=== PATIENT | female | born 1990 | race Caucasian/White ===

== ENCOUNTER 2016-10-25 23:31 | Emergency (ER) | payer OTHER ==
[~2016-10-25 23:31] MED LIST: CEPH500C PO; CYCL10TA2 PO; FLUC150T PO; PNV1TABL12 PO; SULF1TAB24 PO
[2016-10-26 00:05] VITALS: BP 111/63
[2016-10-26] MEDS ORDERED: IBUPROFEN 800 MG TABLET. PO ONE ×2 (00:38→00:45)
[2016-10-26] MEDS ORDERED: PRED20TA PO (00:42)
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
--- NOTE | 2016-10-26 07:21 | RAD ---
Right foot, 3 views, 10/26/2016: History: Fall, pain Comparison is made to a study from 11/28/2011. There are multiple surgical pins traversing the first, second and third tarsal-metatarsal joints. There is a horizontally oriented screw extending through the first through third cuneiform bones. There is a metallic plate with screws related to the proximal first metatarsal. The findings are presumably due to previous trauma with interval surgical fusion of these joints. No superimposed acute fracture or dislocation is evident. IMPRESSION: 1. Postsurgical changes as described above. 2. No acute bony abnormality is detected.
== END 2016-10-26 00:44 | disposition home or self-care (01) ==
LOC: ER 23:31
DX: M79.671 Pain in right foot (principal); L25.9 Unspecified contact dermatitis, unspecified cause; F41.9 Anxiety disorder, unspecified; M19.90 Unspecified osteoarthritis, unspecified site; F90.9 Attention-deficit hyperactivity disorder, unspecified type; G89.29 Other chronic pain; Z98.890 Other specified postprocedural states; Z88.5 Allergy status to narcotic agent; X58.XXXA Exposure to other specified factors, initial encounter; Y93.89 Activity, other specified; Y92.89 Other specified places as the place of occurrence of the external cause; Y99.8 Other external cause status
CPT/HCPCS: 73630; 99284

== ENCOUNTER 2017-05-18 19:38 | Emergency (ER) | payer OTHER ==
[2017-05-18 20:31] LABS: URINE HCG POC HCG NEGATIVE (Negative)
[2017-05-18 20:37] LABS: ADD MAN DIFF? NO; BASO # 0.1 x10^3/uL (0.0-0.2); BASO % 1 % (0-3); EOS # 0.3 x10^3/uL (0.0-0.7); EOS % 3 % (0-3); HEMOGLOBIN 13.3 g/dL (12.0-15.5); LYMPH # 3.5 x10^3/uL (1.0-4.8); LYMPH % 35 % (24-48); MEAN CORPUSCULAR HEMOGLOBIN 31 pg (25-35); MEAN CORPUSCULAR HGB CONC 34 g/dL (31-37); MEAN CORPUSCULAR VOLUME 91 fL (79-100); MONO # 0.6 x10^3/uL (0.0-1.1); MONO % 6 % (0-9); NEUT # 5.7 x10^3uL (1.8-7.7); NEUT % 56 % (31-73); PLATELET COUNT 320 x10^3/uL (140-400); RED BLOOD COUNT 4.27 x10^6/uL (3.50-5.40); RED CELL DISTRIBUTION WIDTH 14.2 % (11.5-14.5); WHITE BLOOD COUNT 10.3 x10^3/uL (4.0-11.0)
[2017-05-18 20:40] LABS: BILIRUBIN,URINE NEGATIVE (NEG); CLARITY,URINE CLEAR; COLOR,URINE YELLOW; GLUCOSE,URINE NEGATIVE (NEG); NITRITE,URINE NEGATIVE (NEG); PROTEIN,URINE NEGATIVE (NEG-TRACE); UROBILINOGEN,URINE 0.2 mg/dL (0.2 mg/dL)
[2017-05-18 20:52] LABS: BACTERIA,URINE 0 /HPF (0-FEW); RBC,URINE 0 /HPF (0-2); SQUAMOUS EPITHELIAL CELL,UR FEW /LPF; WBC,URINE 0 /HPF (0-4)
[2017-05-18 20:56] LABS: ANION GAP 13 (6-14); BLOOD UREA NITROGEN 8 mg/dL (7-20); BUN/CREATININE RATIO 27 (6-20); CALCIUM 8.9 mg/dL (8.5-10.1); CARBON DIOXIDE 23 mmol/L (21-32); CHLORIDE 106 mmol/L (98-107); CREATININE 0.3 mg/dL (0.6-1.0); GFR 264.9; GLUCOSE 80 mg/dL (70-99); SODIUM 142 mmol/L (136-145)
[2017-05-18 21:02] LABS: ALBUMIN 3.7 g/dL (3.4-5.0); ALBUMIN/GLOBULIN RATIO 1.2 (1.0-1.7); ALK PHOS 76 U/L (46-116); ALT (SGPT) 20 U/L (14-59); AST (SGOT) 29 U/L (15-37); TOTAL BILIRUBIN 0.2 mg/dL (0.2-1.0); TOTAL PROTEIN 6.9 g/dL (6.4-8.2)
== END 2017-05-18 21:26 | disposition home or self-care (01) ==
LOC: ER 19:38
DX: R20.2 Paresthesia of skin (principal); F90.9 Attention-deficit hyperactivity disorder, unspecified type; G89.29 Other chronic pain; F41.9 Anxiety disorder, unspecified; F32.9 Major depressive disorder, single episode, unspecified; Z88.5 Allergy status to narcotic agent
CPT/HCPCS: 36415; 70450; 80053; 81001; 81025; 85025; 93005; 99285-25

== ENCOUNTER 2017-07-15 22:48 | Emergency (ER) | payer SELFPAY, OTHER | END 2017-07-15 23:15 | disposition home or self-care (01) | LOC: ER 22:48 | DX: K04.7 Periapical abscess without sinus (principal); K02.9 Dental caries, unspecified; F41.9 Anxiety disorder, unspecified; F32.9 Major depressive disorder, single episode, unspecified; M19.90 Unspecified osteoarthritis, unspecified site; F90.9 Attention-deficit hyperactivity disorder, unspecified type; G89.29 Other chronic pain; Z98.51 Tubal ligation status; Z88.5 Allergy status to narcotic agent | CPT/HCPCS: 99283 ==

== ENCOUNTER 2018-01-23 05:18 | Emergency (ER) | payer SELFPAY ==
[~2018-01-23] VITALS: Ht 162.6 cm; Wt 54.4 kg
[~2018-01-23 05:18] MED LIST changes: +AMOX875T PO; +DICL50TA2 PO; +PRED20TA PO
--- NOTE | 2018-01-23 05:52 | PHYS DOC ---
Past Medical History Past Medical History: Anxiety, Arthritis, Depression, Other Additional Past Medical Histor: ADHD, CHRONIC RIGHT FOOT PAIN, POST DEPRESSION Past Surgical History: , Tubal ligation, Other Additional Past Surgical Histo: RIGHT FOOT X 5 Alcohol Use: None Drug Use: None Adult General Chief Complaint Chief Complaint: ANXIETY/PANIC ATTACK HPI HPI Patient is a 27 year [facility]. She was outside at I was trying to get there to be evaluated for methamphetamine treatment she's been off that she says for about 2 days. She was hyperventilatory however. I contacted so 911 was called and she was brought to the emergency room she says she is not suicidal she does feel anxious she has had a dry cough Review of Systems Review of Systems Constitutional: Denies fever or chills [] Eyes: Denies change in visual acuity, redness, or eye pain [] HENT: Denies nasal congestion or sore throat [] Respiratory Cardiovascular: No additional information not addressed in HPI [] Musculoskeletal: Denies back pain or joint pain [] Integument: Neurologic: Denies headache, focal weakness or sensory changes [] Endocrine: Denies polyuria or polydipsia [] All other systems were reviewed and found to be within normal limits, except as documented in this note. Current Medications Current Medications Current Medications Medications (Trade) Dose Ordered Sig/Ruben Start Time Stop Time Status Last Admin Dose Admin Lorazepam (Ativan) 2 mg 1X ONCE 01/23/18 06:00 01/23/18 06:01 DC 01/23/18 05:51 2 MG Allergies Allergies Allergies Coded Allergies Type Severity Reaction Last Updated Verified codeine Allergy Severe ANAPHYLAXIS 03/11/15 Yes Physical Exam Physical Exam Constitutional: Well developed, well nourished, mild distress to HENT: Normocephalic, atraumatic, bilateral external ears normal, oropharynx moist, no oral exudates, nose normal. [] Eyes: PERRLA, EOMI, conjunctiva normal, no discharge. [] Neck: Normal range of motion, no tenderness, supple, no stridor. [] Cardiovascular:Heart rate mild tachycardia but regular rhythm, no murmur [] Lungs & Thorax: Bilateral breath sounds clear to auscultation [] Abdomen: Bowel sounds normal, soft, no tenderness, no masses, no pulsatile masses. [] Skin: Warm, dry, no erythema, no rash. [] Back: No tenderness, no CVA tenderness. [] Extremities: No tenderness, no cyanosis, no clubbing, ROM intact, no edema. [] Neurologic: Alert and oriented X 3, normal motor function, normal sensory function, no focal deficits noted. [] Psychologic: Patient denies suicidal ideation but does appear very anxious and tachypneic Current Patient Data Vital Signs Vital Signs Date Time Temp Pulse Resp B/P (MAP) Pulse Ox O2 Delivery O2 Flow Rate FiO2 01/23/18 06:28 92 18 143/67 (92) 100 Room Air 01/23/18 05:19 98.5 98.5 Lab Values Laboratory Tests Test 01/23/18 06:25 01/23/18 06:36 White Blood Count 16.1 x10^3/uL (4.0-11.0) H Red Blood Count 4.51 x10^6/uL (3.50-5.40) Hemoglobin 14.6 g/dL (12.0-15.5) Hematocrit 40.4 % (36.0-47.0) Mean Corpuscular Volume 90 fL (79-100) Mean Corpuscular Hemoglobin 32 pg (25-35) Mean Corpuscular Hemoglobin Concent 36 g/dL (31-37) Red Cell Distribution Width 13.6 % (11.5-14.5) Platelet Count 377 x10^3/uL (140-400) Neutrophils (%) (Auto) 75 % (31-73) H Lymphocytes (%) (Auto) 18 % (24-48) L Monocytes (%) (Auto) 5 % (0-9) Eosinophils (%) (Auto) 2 % (0-3) Basophils (%) (Auto) 1 % (0-3) Neutrophils # (Auto) 12.0 x10^3uL (1.8-7.7) H Lymphocytes # (Auto) 2.8 x10^3/uL (1.0-4.8) Monocytes # (Auto) 0.8 x10^3/uL (0.0-1.1) Eosinophils # (Auto) 0.3 x10^3/uL (0.0-0.7) Basophils # (Auto) 0.1 x10^3/uL (0.0-0.2) Glucose (Fingerstick) 104 mg/dL (70-99) H Laboratory Tests 01/23/18 06:25 EKG EKG [] Radiology/Procedures Radiology/Procedures [] Course & Med Decision Making Course & Med Decision Making Pertinent Labs and Imaging studies reviewed. (See chart for details) []Apparent anxiety attack mild to moderate tachycardia she is using methamphetamine very recently I suspect that is the primary etiology here. She is not suicidal plan for Ativan, consult pat team. AT 7:05 AM, PATIENT SAID SHE HAS A COURT DATE TODAY AT 8 AM THAT SHE CANNOT MISS. SHE WANTED TO LEAVE [facility]. PATIENT DENIED SUICIDAL IDEATION, NO HOMICIDAL IDEATION. PAT TEAM WAS CALLED OFF. PATIENT WAS AWAKE, ALERT, ORIENTED TO TIME, PLACE AND PERSON, DOES NOT APPEAR HARM TO HERSELF OR OTHER. SHE WILL LEAVE A THEN. Dragon Disclaimer Dragon Disclaimer This electronic medical record was generated, in whole or in part, using a voice recognition dictation system. Departure Departure Impression: Primary Impression: Anxiety Disposition: 07 AGAINST MEDICAL ADVICE Condition: STABLE Referrals: DILIA ASHBY MD (PCP) BLAIRE MORALES MD Jan 23, 2018 05:52 PATRICIA RAY DO Jan 23, 2018 07:08
[2018-01-23 06:28] VITALS: BP 143/67
[2018-01-23 06:48] LABS: BASO # 0.1 x10^3/uL (0.0-0.2); BASO % 1 % (0-3); EOS # 0.3 x10^3/uL (0.0-0.7); EOS % 2 % (0-3); HEMATOCRIT 40.4 % (36.0-47.0); HEMOGLOBIN 14.6 g/dL (12.0-15.5); LYMPH # 2.8 x10^3/uL (1.0-4.8); LYMPH % 18 % (24-48); MEAN CORPUSCULAR HEMOGLOBIN 32 pg (25-35); MEAN CORPUSCULAR HGB CONC 36 g/dL (31-37); MEAN CORPUSCULAR VOLUME 90 fL (79-100); MONO # 0.8 x10^3/uL (0.0-1.1); MONO % 5 % (0-9); NEUT % 75 % (31-73); PLATELET COUNT 377 x10^3/uL (140-400); RED BLOOD COUNT 4.51 x10^6/uL (3.50-5.40); RED CELL DISTRIBUTION WIDTH 13.6 % (11.5-14.5); WHITE BLOOD COUNT 16.1 x10^3/uL (4.0-11.0)
[2018-01-23 07:04] LABS: ALBUMIN 4.7 g/dL (3.4-5.0); ALBUMIN/GLOBULIN RATIO 1.5 (1.0-1.7); CALCIUM 9.9 mg/dL (8.5-10.1); CREATININE 0.8 mg/dL (0.6-1.0); GFR 85.4; TOTAL PROTEIN 7.8 g/dL (6.4-8.2)
[2018-01-23 07:15] LABS: POTASSIUM 2.9 mmol/L (3.5-5.1)
== END 2018-01-23 07:09 | disposition home or self-care (01) ==
LOC: ER 05:18
DX: F41.9 Anxiety disorder, unspecified (principal); R11.10 Vomiting, unspecified; M19.90 Unspecified osteoarthritis, unspecified site; F32.9 Major depressive disorder, single episode, unspecified; Z98.890 Other specified postprocedural states; Z98.51 Tubal ligation status; Z88.5 Allergy status to narcotic agent
CPT/HCPCS: 36415; 80053; 82962; 85025; 96372; 99284; J2060

== ENCOUNTER 2018-01-24 17:05 | Emergency (ER) | payer SELFPAY ==
[2018-01-23 06:28] VITALS: BP 143/67
== END 2018-01-24 20:03 | disposition left against medical advice (07) ==
LOC: ER 17:05
DX: R10.2 Pelvic and perineal pain (principal); Z53.21 Procedure and treatment not carried out due to patient leaving prior to being seen by health care provider

== ENCOUNTER 2018-10-14 23:04 | Emergency (ER) | payer SELFPAY ==
[~2018-10-14] VITALS: Ht 170.2 cm; Wt 54.4 kg
[2018-10-14] MEDS ORDERED: HALOPERIDOL LACTATE 5 MG/ML VIAL. IM ONE (23:15)
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
[2018-10-14 23:38] LABS: AMPHETAMINE/METHAMPHETAMINE NEG (NEG); BARBITURATES NEG (NEG); BENZODIAZEPINES NEG (NEG); CANNABINOIDS NEG (NEG); COCAINE NEG (NEG); METHADONE NEG (NEG); OPIATES NEG (NEG); PHENCYCLIDINE NEG (NEG)
[2018-10-14 23:42] LABS: BASO # 0.1 x10^3/uL (0.0-0.2); BASO % 1 % (0-3); EOS # 0.4 x10^3/uL (0.0-0.7); EOS % 4 % (0-3); HEMATOCRIT 40.4 % (36.0-47.0); HEMOGLOBIN 14.4 g/dL (12.0-15.5); LYMPH # 4.4 x10^3/uL (1.0-4.8); LYMPH % 38 % (24-48); MEAN CORPUSCULAR HEMOGLOBIN 33 pg (25-35); MEAN CORPUSCULAR HGB CONC 36 g/dL (31-37); MEAN CORPUSCULAR VOLUME 92 fL (79-100); MONO # 0.5 x10^3/uL (0.0-1.1); MONO % 5 % (0-9); NEUT # 6.1 x10^3uL (1.8-7.7); NEUT % 53 % (31-73); PLATELET COUNT 311 x10^3/uL (140-400); RED BLOOD COUNT 4.38 x10^6/uL (3.50-5.40); RED CELL DISTRIBUTION WIDTH 13.6 % (11.5-14.5); WHITE BLOOD COUNT 11.5 x10^3/uL (4.0-11.0)
[2018-10-15 00:05] LABS: CALCIUM 9.2 mg/dL (8.5-10.1); CREATININE 0.6 mg/dL (0.6-1.0); GFR 118.2; POTASSIUM 3.3 mmol/L (3.5-5.1)
[2018-10-15 00:09] LABS: ALBUMIN 4.4 g/dL (3.4-5.0); ALBUMIN/GLOBULIN RATIO 1.4 (1.0-1.7); TOTAL BILIRUBIN 0.1 mg/dL (0.2-1.0); TOTAL PROTEIN 7.6 g/dL (6.4-8.2)
[2018-10-15 04:23] VITALS: BP 94/52
== END 2018-10-15 05:18 | disposition home or self-care (01) ==
LOC: ER 23:04
DX: F10.129 Alcohol abuse with intoxication, unspecified (principal); Y90.9 Presence of alcohol in blood, level not specified; R00.0 Tachycardia, unspecified; R45.1 Restlessness and agitation; F41.9 Anxiety disorder, unspecified; F32.9 Major depressive disorder, single episode, unspecified; M19.90 Unspecified osteoarthritis, unspecified site; Z98.890 Other specified postprocedural states; Z98.51 Tubal ligation status; Z88.5 Allergy status to narcotic agent
CPT/HCPCS: 36415; 80053; 80307; 85025; 96372; 99284; J1630

== ENCOUNTER 2018-11-11 22:41 | Emergency (ER) | payer SELFPAY ==
[~2018-11-11] VITALS: Ht 162.6 cm; Wt 61.2 kg
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
[2018-11-12 00:19] VITALS: BP 126/81
== END 2018-11-12 01:24 | disposition home or self-care (01) ==
LOC: ER 22:41 → EEVIPCON 22:41 → ER 11-12 01:24
DX: T74.11XA Adult physical abuse, confirmed, initial encounter (principal); S80.11XA Contusion of right lower leg, initial encounter; S10.83XA Contusion of other specified part of neck, initial encounter; F41.9 Anxiety disorder, unspecified; M19.90 Unspecified osteoarthritis, unspecified site; F32.9 Major depressive disorder, single episode, unspecified; F10.20 Alcohol dependence, uncomplicated; Y90.9 Presence of alcohol in blood, level not specified; Z98.890 Other specified postprocedural states; Z98.51 Tubal ligation status; Z88.5 Allergy status to narcotic agent; Y04.8XXA Assault by other bodily force, initial encounter; Y93.89 Activity, other specified; Y92.89 Other specified places as the place of occurrence of the external cause; Y99.8 Other external cause status
CPT/HCPCS: 99283

== ENCOUNTER 2019-03-28 21:54 | Emergency (ER) | payer MEDICAID ==
[~2019-03-28] VITALS: Ht 165.1 cm; Wt 61.2 kg
[2019-03-28] MEDS ORDERED: HALOPERIDOL LACTATE 5 MG/ML VIAL. ONE (22:02)
[2019-03-28] MEDS ORDERED: HALOPERIDOL LACTATE 5 MG/ML VIAL. IM ONE (22:15)
[2019-03-28] MEDS ORDERED: HALOPERIDOL LACTATE 5 MG/ML VIAL. IVP ONE (22:15)
--- NOTE | 2019-03-28 22:24 | PHYS DOC ---
Past Medical History Past Medical History: Anxiety, Arthritis, Depression, Seizure, Other Additional Past Medical Histor: ADHD, CHRONIC RIGHT FOOT PAIN, POST DEPRESSION Past Surgical History: , Tubal ligation, Other Additional Past Surgical Histo: RIGHT FOOT X 5 Alcohol Use: Heavy Drug Use: Methamphetamine Adult General Chief Complaint Chief Complaint: ALCOHOL INTOXICATION HPI HPI Patient is a 29 year old female with history of anxiety who presents with acute alcohol intoxication. Patient arrives by mass. Reportedly, the patient was found naked, agitated and combative while attending private house [employer]. Patient reportedly assumed a large quantity of alcohol along with possible known substances 2 hours prior to police any mass been contacted. Patient verbally and physically aggressive with EMS hitting them and refusing to cooperate with staff on ED arrival. Patient alert and oriented to person only. Haldol given to facilitate care.[] Review of Systems Review of Systems ROS as per HPI All other systems were reviewed and found to be within normal limits, except as documented in this note. Current Medications Current Medications Current Medications Medications (Trade) Dose Ordered Sig/Ruben Start Time Stop Time Status Last Admin Dose Admin Haloperidol Lactate (Haldol Inj) 5 mg STK-MED ONCE 03/28/19 22:02 03/28/19 22:03 DC Allergies Allergies Allergies Coded Allergies Type Severity Reaction Last Updated Verified codeine Allergy Severe ANAPHYLAXIS 03/11/15 Yes Physical Exam Physical Exam Constitutional: Well developed, well nourished, agitated, smells of EtOH intoxicants. [] HENT: Normocephalic, atraumatic, bilateral external ears normal, oropharynx moist, no oral exudates, nose normal. [] Eyes: PERRLA, EOMI, conjunctivae injected. [] Neck: Normal range of motion. [] Cardiovascular:Heart rate regular rhythm, no murmur [] Lungs & Thorax: Bilateral breath sounds clear to auscultation [] Abdomen: Bowel sounds normal, soft, no tenderness.[] Extremities: No tenderness, no cyanosis, no clubbing, ROM intact, no edema. [] Neurologic: Alert and oriented X 1, normal motor function, normal sensory function, no focal deficits noted. [] Psychologic: Agitated[] Current Patient Data Vital Signs Vital Signs Date Time Temp Pulse Resp B/P (MAP) Pulse Ox O2 Delivery O2 Flow Rate FiO2 03/29/19 01:00 70 17 83/45 (58) Room Air 03/28/19 22:29 94 Lab Values Laboratory Tests Test 03/28/19 22:50 White Blood Count 8.0 x10^3/uL (4.0-11.0) Red Blood Count 4.36 x10^6/uL (3.50-5.40) Hemoglobin 13.7 g/dL (12.0-15.5) Hematocrit 38.8 % (36.0-47.0) Mean Corpuscular Volume 89 fL (79-100) Mean Corpuscular Hemoglobin 31 pg (25-35) Mean Corpuscular Hemoglobin Concent 35 g/dL (31-37) Red Cell Distribution Width 13.3 % (11.5-14.5) Platelet Count 406 x10^3/uL (140-400) H Neutrophils (%) (Auto) 53 % (31-73) Lymphocytes (%) (Auto) 40 % (24-48) Monocytes (%) (Auto) 4 % (0-9) Eosinophils (%) (Auto) 2 % (0-3) Basophils (%) (Auto) 1 % (0-3) Neutrophils # (Auto) 4.2 x10^3/uL (1.8-7.7) Lymphocytes # (Auto) 3.2 x10^3/uL (1.0-4.8) Monocytes # (Auto) 0.3 x10^3/uL (0.0-1.1) Eosinophils # (Auto) 0.1 x10^3/uL (0.0-0.7) Basophils # (Auto) 0.0 x10^3/uL (0.0-0.2) Sodium Level 146 mmol/L (136-145) H Potassium Level 3.5 mmol/L (3.5-5.1) Chloride Level 109 mmol/L (98-107) H Carbon Dioxide Level 23 mmol/L (21-32) Anion Gap 14 (6-14) Blood Urea Nitrogen 7 mg/dL (7-20) Creatinine 0.5 mg/dL (0.6-1.0) L Estimated GFR (Cockcroft-Gault) 144.9 BUN/Creatinine Ratio 14 (6-20) Glucose Level 108 mg/dL (70-99) H Calcium Level 8.6 mg/dL (8.5-10.1) Magnesium Level 1.8 mg/dL (1.8-2.4) Total Bilirubin 0.1 mg/dL (0.2-1.0) L Aspartate Amino Transferase (AST) 20 U/L (15-37) Alanine Aminotransferase (ALT) 17 U/L (14-59) Alkaline Phosphatase 87 U/L (46-116) Total Protein 7.3 g/dL (6.4-8.2) Albumin 3.9 g/dL (3.4-5.0) Albumin/Globulin Ratio 1.1 (1.0-1.7) Thyroid Stimulating Hormone (TSH) 3.304 uIU/mL (0.358-3.74) Laboratory Tests 03/28/19 22:50 Laboratory Tests 03/28/19 22:50 EKG EKG [] Radiology/Procedures Radiology/Procedures [] Course & Med Decision Making Course & Med Decision Making Pertinent Labs and Imaging studies reviewed. (See chart for details) [Patient given Haldol shortly after ED arrival for patient safety and protection of staff members. Patient monitored closely in the emergency department for several hours. Patient alert oriented with stable gait prior to departure. ] Dragon Disclaimer Dragon Disclaimer This electronic medical record was generated, in whole or in part, using a voice recognition dictation system. Departure Departure Impression: Primary Impression: Alcohol abuse Disposition: 01 HOME, SELF-CARE Condition: STABLE Referrals: DILIA ASHBY MD (PCP) Patient Instructions: Alcohol Intoxication, [id number] Additional Instructions: Go home and rest. Limit alcohol intake and avoid harmful drugs. Follow-up with your PCP for reevaluation and referral to outpatient rehabilitation. DEJAN RAINEY DO Mar 28, 2019 22:24
[2019-03-28 23:06] LABS: BASO % 1 % (0-3); EOS # 0.1 x10^3/uL (0.0-0.7); EOS % 2 % (0-3); HEMATOCRIT 38.8 % (36.0-47.0); HEMOGLOBIN 13.7 g/dL (12.0-15.5); LYMPH # 3.2 x10^3/uL (1.0-4.8); LYMPH % 40 % (24-48); MEAN CORPUSCULAR HEMOGLOBIN 31 pg (25-35); MEAN CORPUSCULAR HGB CONC 35 g/dL (31-37); MEAN CORPUSCULAR VOLUME 89 fL (79-100); MONO # 0.3 x10^3/uL (0.0-1.1); MONO % 4 % (0-9); NEUT # 4.2 x10^3/uL (1.8-7.7); NEUT % 53 % (31-73); PLATELET COUNT 406 x10^3/uL (140-400); RED BLOOD COUNT 4.36 x10^6/uL (3.50-5.40); RED CELL DISTRIBUTION WIDTH 13.3 % (11.5-14.5)
[2019-03-28 23:12] LABS: CALCIUM 8.6 mg/dL (8.5-10.1); CREATININE 0.5 mg/dL (0.6-1.0); GFR 144.9; POTASSIUM 3.5 mmol/L (3.5-5.1)
[2019-03-28 23:18] LABS: ALBUMIN 3.9 g/dL (3.4-5.0); ALBUMIN/GLOBULIN RATIO 1.1 (1.0-1.7); MAGNESIUM 1.8 mg/dL (1.8-2.4); TOTAL BILIRUBIN 0.1 mg/dL (0.2-1.0); TOTAL PROTEIN 7.3 g/dL (6.4-8.2)
[2019-03-29 03:28] VITALS: BP 98/54
== END 2019-03-29 04:30 | disposition home or self-care (01) ==
LOC: ER 21:54
DX: F10.129 Alcohol abuse with intoxication, unspecified (principal); F12.90 Cannabis use, unspecified, uncomplicated; Y90.9 Presence of alcohol in blood, level not specified; F41.9 Anxiety disorder, unspecified; M19.90 Unspecified osteoarthritis, unspecified site; Z98.51 Tubal ligation status; Z98.890 Other specified postprocedural states; Z88.5 Allergy status to narcotic agent
CPT/HCPCS: 36415; 80053; 83735; 84443; 85025; 96372; 99284; J1630

== ENCOUNTER 2019-06-10 20:44 | Emergency (ER) | payer MEDICAID ==
[~2019-06-10] VITALS: Ht 162.6 cm; Wt 71.0 kg
[2019-06-10] MEDS ORDERED: IV NORMAL SALINE 1000ML BAG 1,000 ML IV ONE (21:00)
[2019-06-10] MEDS ORDERED: diphenhydrAMINE 50 MG/ML VIAL IVP ONE (21:00)
--- NOTE | 2019-06-10 21:04 | PHYS DOC ---
Past Medical History Past Medical History: Anxiety, Arthritis, Depression, Seizure, Other Additional Past Medical Histor: ADHD, CHRONIC RIGHT FOOT PAIN, POST DEPRESSION Past Surgical History: , Tubal ligation, Other Additional Past Surgical Histo: RIGHT FOOT X 5 Alcohol Use: Heavy Drug Use: Methamphetamine Adult General Chief Complaint Chief Complaint: HEADACHE HPI HPI 29-year-old female presents to emergency department complaints of headache. Patient has underlying history of head injury causing seizures in the past. She describes stabbing sensation to the sides of her head deep in her head. She states her LMP 05/28/2019. Patient denies any nausea or vomiting this time. She denies any visual change and examination. Patient currently is in the process of detoxying from ETOH/Opiates - states she is on some injection however does not know the name of the medication. Patient denies neck pain on exam. Nothing makes pain worse, nothing makes pain better Review of Systems Review of Systems Constitutional: Denies fever or chills [] Eyes: Denies change in visual acuity, redness, or eye pain [] Respiratory: Denies cough or shortness of breath [] Cardiovascular: No additional information not addressed in HPI [] GI: Denies abdominal pain, nausea, vomiting, bloody stools or diarrhea [] Integument: Denies rash or skin lesions [] Neurologic: + headache, focal weakness or sensory changes [] All other systems were reviewed and found to be within normal limits, except as documented in this note. Current Medications Current Medications Current Medications Medications (Trade) Dose Ordered Sig/Ruben Start Time Stop Time Status Last Admin Dose Admin Diphenhydramine HCl (Benadryl) 50 mg 1X ONCE 06/10/19 21:00 06/10/19 21:01 DC 06/10/19 21:27 50 MG Ketorolac Tromethamine (Toradol 30mg Vial) 30 mg 1X ONCE 06/10/19 21:30 06/10/19 21:31 DC 06/10/19 21:28 30 MG Metoclopramide HCl (Reglan Vial) 10 mg 1X ONCE 06/10/19 21:30 06/10/19 21:31 DC 06/10/19 21:28 10 MG Sodium Chloride 1,000 ml @ 1,000 mls/hr 1X ONCE 06/10/19 21:00 06/10/19 21:59 06/10/19 21:20 1,000 MLS/HR Allergies Allergies Allergies Coded Allergies Type Severity Reaction Last Updated Verified codeine Allergy Severe ANAPHYLAXIS 03/11/15 Yes Physical Exam Physical Exam Constitutional: Well developed, well nourished, no acute distress, non-toxic appearance. [] HENT: Normocephalic, atraumatic, bilateral external ears normal, oropharynx moist, no oral exudates, nose normal. [] Eyes: PERRLA, EOMI, conjunctiva normal, no discharge. [] Neck: Normal range of motion, no tenderness, supple, no stridor. [] Cardiovascular:Heart rate regular rhythm, no murmur [] Lungs & Thorax: Bilateral breath sounds clear to auscultation [] Abdomen: Bowel sounds normal, soft, no tenderness, no masses, no pulsatile masses. [] Skin: Warm, dry, no erythema, no rash. [] Extremities: No tenderness, no edema. [] Neurologic: Alert and oriented X 3, no focal deficits noted. [] Psychologic: Affect normal, judgement normal, mood normal. [] Current Patient Data Vital Signs Vital Signs Date Time Temp Pulse Resp B/P (MAP) Pulse Ox O2 Delivery O2 Flow Rate FiO2 06/10/19 20:53 97.4 83 20 146/72 (96) 100 Room Air 97.4 EKG EKG [] Radiology/Procedures Radiology/Procedures [] Course & Med Decision Making Course & Med Decision Making Pertinent Labs and Imaging studies reviewed. (See chart for details) []29-year-old female presents to emergency department complaints of headache. Patient has underlying history of head injury causing seizures in the past. She describes stabbing sensation to the sides of her head deep in her head. She states her LMP 05/28/2019. Patient denies any nausea or vomiting this time. She denies any visual change and examination. Patient currently is in the process of detoxying from ETOH/Opiates - states she is on some injection however does not know the name of the medication. Patient denies neck pain on exam. Nothing makes pain worse, nothing makes pain better. CT head ordered however patient declined Reglan/[place]/Benadryl provided IV - patient states after 22 min that the pain medications are not working Discussed with patient that she needs to let the medication work however she states she wants to leave Patient will leave ESTEFANIA Heard Disclaimer [employer] Disclaimer This electronic medical record was generated, in whole or in part, using a voice recognition dictation system. Departure Departure Impression: Primary Impression: Headache Disposition: 07 AGAINST MEDICAL ADVICE Condition: STABLE Referrals: DILIA ASHBY MD (PCP) Patient Instructions: Migraine Headache, [id number] Additional Instructions: Tylenol/Motrin as needed for pain Reglan/Toradol/Benadryl provided IV Recommended CT however patient declines AMA form discussed per nursing Problem Qualifiers Primary Impression: Headache Headache type: unspecified Headache chronicity pattern: acute headache Intractability: intractable Qualified Codes: R51 - Headache PUNEET MÁRQUEZ MD Jun 10, 2019 21:04
[2019-06-10] MEDS ORDERED: METOCLOPRAMIDE HCL 10 MG/2 ML VIAL. IVP ONE (21:30)
[2019-06-10] MEDS ORDERED: KETOROLAC 30 MG/ML VIAL. IVP ONE (21:30)
[2019-06-10 21:47] VITALS: BP 132/75
== END 2019-06-10 22:09 | disposition left against medical advice (07) ==
LOC: ER 20:44
DX: R51 Headache (principal); G89.29 Other chronic pain; F41.9 Anxiety disorder, unspecified; F32.9 Major depressive disorder, single episode, unspecified; F10.20 Alcohol dependence, uncomplicated; Y90.9 Presence of alcohol in blood, level not specified; Z88.5 Allergy status to narcotic agent
CPT/HCPCS: 96374; 96375; 99284; J1200; J1885; J2765; J7030